=== PATIENT | female | born 1950 | race Caucasian/White ===

== ENCOUNTER 2018-08-02 13:24 | Inpatient (IN) ==
[2018-08-02] MEDS ORDERED: ASPIRIN PO ONE (13:36)
--- NOTE | 2018-08-02 13:49 | EKG Report ---
Test Performed on : 08/02/2018 1:40:59 PM Test Reason : CP Blood Pressure : / mmHG Vent. Rate : 085 BPM Atrial Rate : 085 BPM P-R Int : 138 ms QRS Dur : 082 ms QT Int : 354 ms P-R-T Axes : 064 055 009 degrees QTc Int : 421 ms Normal sinus rhythm. Nonspecific ST abnormality Abnormal ECG When compared with ECG of 22-JUL-2017 14:42, No significant change was found Unconfirmed Result
--- NOTE | 2018-08-02 14:06 | Diag Imaging Result Doc PS360 ---
EXAM: CHEST-2 VIEWS HISTORY: COUGH WITH CP TECHNIQUE: Chest two views COMPARISON: 07/19/2017 FINDINGS: There are infiltrates in the mid and lower left lung on the current exam. Interstitial markings are more prominent on the current study. No cardiomegaly. No pleural effusions. IMPRESSION: Mid and lower left lung pneumonia. Electronically signed by Dwayne Matthew 08/02/2018 2:04 PM
[2018-08-02 14:10] LABS: BASO# 0.01 X1000 (0.0-0.2); BASO% 0.1 % (0.0-0.8); EOS# 0.05 X1000 (0.0-0.7); EOS% 0.5 % (0.0-10.0); HEMOGLOBIN 10.9 g/dL (12.0-16.0); IMM GRAN# 0.01 X1000 (0.0-0.04); IMM GRAN% 0.1 % (0.0-0.5); LYMPH# 1.93 X1000 (1.2-3.4); LYMPH% 19.7 % (20.5-51.1); MCH 27.5 PG (27-31); MCHC 32.1 g/dL (33-37); MCV 85.6 FL (81-99); MONO# 0.68 X1000 (0.11-0.59); MONO% 6.9 % (1.7-9.3); MPV 9.2 FL (7.4-10.4); NEUT# 7.13 X1000 (1.4-6.5); NEUT% 72.7 % (42.2-75.2); PLT 213 X1000 (130-400); RBC 3.97 XMIL (4.2-5.4); RDW 15.3 % (11.5-14.5); WBC 9.81 X1000 (4.8-10.8)
[2018-08-02 14:22] LABS: INR 1.07; PROTIME 14.5 Seconds (11.0-16.0)
[2018-08-02 14:23] LABS: PTT 35.8 Seconds (22.3-41.8)
[2018-08-02 14:55] LABS: AGAP 18; ALBUMIN 3.8 g/dL (3.5-5.0); ALKALINE PHOSPHATASE 71 U/L (32-104); BUN 14 mg/dL (8-22); CALCIUM 8.4 mg/dL (8.8-10.2); CHLORIDE 99 mmol/L (98-107); CK PROFILE 311 U/L (24-173); COSMO 277; CREATININE 1.1 mg/dL (0.5-0.9); ESTIMATED GFR 50; GLUCOSE 122 mg/dL (70-104); GOT 11 U/L (10-30); GPT 7 U/L (10-36); POTASSIUM 3.6 mmol/L (3.5-5.1); SODIUM 138 mmol/L (136-145); TCO2 22 mmol/L (25-35); TOTAL BILIRUBIN < 0.15 mg/dL (0.20-1.00); TOTAL PROTEIN 6.2 g/dL (6.3-8.3)
[2018-08-02 15:18] LABS: CK INDEX 1.6 (0.0-2.5); CK-MB 4.88 ng/mL (0.0-5.0)
[2018-08-02] MEDS ORDERED: ROCEPHIN IM ONE (16:27)
[2018-08-02] MEDS ORDERED: TYLENOL PO ONE (16:27)
[2018-08-02] MEDS ORDERED: XYLOCAINE-MPF 1% INJ ONE ×2 (16:27→17:16)
[2018-08-02] MEDS ORDERED: ROCEPHIN IV ONE (17:16)
[2018-08-02] MEDS ORDERED: NS 1,000 ML IV ONE (17:17)
[2018-08-02] MEDS ORDERED: NS 50 ML ONE (17:24)
[2018-08-02 17:35] LABS: INFLUENZA A NEGATIVE (NEGATIVE); INFLUENZA B NEGATIVE (NEGATIVE)
[2018-08-02] MEDS ORDERED: NS 50 ML IV ONE (17:46)
[2018-08-02] MEDS ORDERED: ZOFRAN IV PRN (19:24)
[2018-08-02] MEDS ORDERED: DUONEB (A & A) INH PRN (19:27)
[2018-08-02] MEDS: DUONEB (A & A) INH SCH ×2 (19:45→22:59)
[2018-08-02] MEDS ORDERED: NS 1,000 ML ONE (19:51)
[2018-08-02] MEDS ORDERED: NICODERM PATCH ONE (19:51)
[2018-08-02] MEDS: SOLU-MEDROL IV SCH (20:00)
[2018-08-02] MEDS: NICODERM PATCH TD SCH (20:02)
[2018-08-02] MEDS: NS 1,000 ML IV SCH (20:03)
--- NOTE | 2018-08-02 20:05 | PROVIDER DOCUMENTATION ---
This chart was entered by Brittani Donahue Scribe, acting as scribe for Gabrielle Graves MD. HPI-General Adult - General Chief Complaint: Chest Pain Stated Complaint: FLU SX Time Seen by Provider: 08/02/18 16:03 Source: patient Allergies/Adverse Reactions: Patient Allergies Allergy/AdvReac Type Severity Reaction Status Date / Time cephalexin monohydrate * Allergy Mild HIVES Verified 04/21/13 13:59 [From Keflex] ARTEM Inhibitors AdvReac DRY COUGH Verified 07/21/17 08:31 Home Medications: Home Medication List Medication Instructions Recorded Confirmed Last Taken Type Amitriptyline [Elavil] 50 mg PO HS 04/21/13 07/19/17 04/20/13 20:00 History Citalopram [Celexa] 20 mg PO DAILY 04/21/13 07/19/17 04/20/13 20:00 History Clonazepam [Klonopin] 0.5 mg PO BID 04/21/13 07/20/17 04/20/13 20:00 History Dexlansoprazole [Dexilant] 60 mg PO DAILY 04/21/13 07/19/17 04/21/13 08:00 History Gabapentin 600 mg PO BID 04/21/13 07/20/17 04/21/13 08:00 History Diltiazem C.d. [Cardizem Cd] 120 mg PO DAILY #30 cap 07/23/17 Unknown Rx Doxycycline 100 mg PO BID #12 tab 07/23/17 Unknown Rx Gabapentin [Neurontin] 300 mg PO Q6H capsule 07/23/17 Unknown Rx Hydrochlorothiazide 25 mg PO DAILY #30 tab 07/23/17 Unknown Rx Levofloxacin [Levaquin] 500 mg PO DAILY #6 tab 07/23/17 Unknown Rx - History of Present Illness -Gen Adult Nature of Presenting Problems: Pt is 68/F presenting to ED w/ cough, left lateral chest pain w/ cough, and nasal congestion for the last several days. Pt denies SOB. HX of COPD. Pt is an everyday current smoker last cig 10 minutes ago per patient. Location of Pain/Injury: reports: chest (w/ cough only) Pain Radiation: reports: no radiation Quality of Pain: reports: aching Severity: reports: mild Onset/Duration: reports: 2 days ago, 3 days ago Timing: reports: still present Context/Activities at Onset: reports: none Modifying Factors: improves with: nothing Associated Symptoms: reports: chest pain, cough. denies: diaphoresis, fever/ chills, shortness of breath, vomiting Similar Symptoms Previously?: No Recently seen or treated by another doctor?: No Review of Systems - Adult - REVIEW OF SYSTEMS - ADULT Constitutional: denies: chills, fever Eyes: reports: no symptoms reported Ears, Nose, Mouth & Throat: reports: no symptoms reported Cardiovascular: reports: no symptoms reported. denies: chest pain (w/ coughing only) Respiratory: reports: cough. denies: shortness of breath, wheezing Gastrointestinal: reports: no symptoms reported. denies: abdominal pain, nausea , vomiting Genitourinary: reports: no symptoms reported Musculoskeletal: reports: no symptoms reported Integumentary: reports: no symptoms reported Neurological: reports: no symptoms reported. denies: dizziness/vertigo, headache/migraines Endocrine: reports: no symptoms reported Hematologic/Lymphatic: reports: no symptoms reported Allergic/Immunologic: reports: no symptoms reported All Other Systems: Reviewed and Negative Past History - Adult - PAST MEDICAL HISTORY-ADULT Review of Records: reports: Old Records Reviewed, Nursing Assessment Review, Medications Reviewed, Social history reviewed & non-contributory. Respiratory: reports: COPD - SOCIAL HISTORY Smoking: cigarettes, greater than 1 pack/day Provider spent 3-5 mins advising pt. on dangers of tobacco.: Discussed manners to quit use, and f/u contacts for add'l counseling. Substance Use: none/never Alcohol Use Frequency: never Living Situation: family Physical Exam-General - PHYSICAL EXAM-ADULT Initial Vital Signs Reviewed: Yes - CONSTITUTIONAL General Appearance: alert, no apparent distress - EYES Eyes: PERRL/EOMI - HEAD, EARS, NOSE, MOUTH & THROAT HENMT: normocephalic/atraumatic, moist mucous membranes, normal ENT inspection, TMs normal, pharynx normal - NECK Neck: non-tender, full range of motion, supple, normal inspection - RESPIRATORY Respiratory: chest non-tender, normal breath sounds, crackles (Crackles L lung) . negative: wheezing - CARDIOVASCULAR Cardiovascular: normal peripheral pulses, regular rate, rhythm, no edema - GASTROINTESTINAL (ABDOMEN) Abdominal Exam: normal bowel sounds, non tender, soft - SKIN Integumentary: normal color, warm/dry - NEUROLOGIC Neurologic: grossly normal Progress - PLAN OF CARE/RESULTS Progress/Plan/Lab Results: Vital Signs - 8 hr 08/02/18 13:32 Temperature 98.0 F Pulse Rate 88 Respiratory Rate 20 Blood Pressure 116/65 O2 Sat by Pulse Oximetry 93 L Laboratory Results - last 24 hr 08/02/18 08/02/18 08/02/18 13:48 13:48 13:48 WBC 9.81 RBC 3.97 L Hgb 10.9 L Hct 34.0 L MCV 85.6 MCH 27.5 MCHC 32.1 L RDW Std Deviation 15.3 H Plt Count 213 MPV 9.2 Immature Gran % (Auto) 0.1 Neut % (Auto) 72.7 Lymph % (Auto) 19.7 L Sutter % (Auto) 6.9 Eos % (Auto) 0.5 Baso % (Auto) 0.1 Immature Gran # (Auto) 0.01 Neut # (Auto) 7.13 H Lymph # (Auto) 1.93 Sutter # (Auto) 0.68 H Eos # (Auto) 0.05 Baso # (Auto) 0.01 PT INR PTT (Actin FS) Sodium 138 Potassium 3.6 Chloride 99 Carbon Dioxide 22 L Anion Gap 18 BUN 14 Creatinine 1.1 H Estimated GFR/1.73 m2 50 BUN/Creatinine Ratio 13 Glucose 122 H Calculated Osmolality 277 Calcium 8.4 L Total Bilirubin < 0.15 L AST 11 ALT 7 L Alkaline Phosphatase 71 Creatine Kinase 311 H Creatine Kinase Index 1.6 CK-MB (CK-2) 4.88 Troponin T Zsg-V-Etdomyfaixk Pept 270 Total Protein 6.2 L Albumin 3.8 Globulin 2.0 Albumin/Globulin Ratio 2.0 08/02/18 08/02/18 13:48 13:48 WBC RBC Hgb Hct MCV MCH MCHC RDW Std Deviation Plt Count MPV Immature Gran % (Auto) Neut % (Auto) Lymph % (Auto) Sutter % (Auto) Eos % (Auto) Baso % (Auto) Immature Gran # (Auto) Neut # (Auto) Lymph # (Auto) Sutter # (Auto) Eos # (Auto) Baso # (Auto) PT 14.5 INR 1.07 PTT (Actin FS) 35.8 Sodium Potassium Chloride Carbon Dioxide Anion Gap BUN Creatinine Estimated GFR/1.73 m2 BUN/Creatinine Ratio Glucose Calculated Osmolality Calcium Total Bilirubin AST ALT Alkaline Phosphatase Creatine Kinase Creatine Kinase Index CK-MB (CK-2) Troponin T < 0.010 Hye-R-Iqohwzbucxe Pept Total Protein Albumin Globulin Albumin/Globulin Ratio Orders Category Date Time Status Cardiac Monitoring DIRECTED Care 08/02/18 13:36 Active Oxygen Therapy- ED Nursing DIRECTED Care 08/02/18 13:36 Active Saline Loc NOW Care 08/02/18 13:36 Active CHEST-2 VIEWS [RAD] Stat Exams 08/02/18 13:36 Completed CBC WITH ELECTRONIC DIFF [HEME] Stat Lab 08/02/18 13:48 Completed CK PROFILE [SP CHEM] Stat Lab 08/02/18 13:48 Completed COMPREHENSIVE METABOLIC PANEL [CHEM] Stat Lab 08/02/18 13:[address] Stat Lab 08/02/18 16:26 Uncollected PRO B-NATRIURETIC PEPTIDE Stat Lab 08/02/18 13:48 Completed PROTIME WITH INR [COAG] Stat Lab 08/02/18 13:48 Completed PTT [COAG] Stat Lab 08/02/18 13:48 Completed TROPONIN T Stat Lab 08/02/18 13:48 Completed Acetaminophen [Tylenol] Med 08/02/18 16:27 Discontinued 650 mg PO NOW ONE Aspirin Med 08/02/18 13:36 Discontinued 325 mg PO NOW ONE CefTRIAXONE [Rocephin] Med 08/02/18 16:27 Discontinued 1 gm IM NOW ONE Lidocaine 1% Pf [Xylocaine-Mpf 1%] Med 08/02/18 16:27 Discontinued 5 ml INJ NOW ONE CP/SOB/Palp >45 yrs of Age Stat Oth 08/02/18 13:36 Ordered EKG [EKG] Stat Ther 08/02/18 13:36 Draft Result Diagrams: 08/02/18 13:48 08/02/18 13:48 - EKG 1 Time of EKG reading by physician:: 13:52 EKG Read and Signed by:: Drake Abdullahi EKG Interpretation (*Must complete 3 of following elements*): Abnormal (normal sinus rhythm, nonspecific ST abnormality, Abnormal ECG) Rate: 85 Rhythm: normal sinus QRS: normal LA Interval: normal - CONSULTS/PCP/HOSPITALIST Notification #1 *Consult/PCP/Hospitalist*: Dr. Crandall Time Discussed: 18:41 Consult Disposition: Admit (Hx, PE, DX discused with Dr. Crandall) Departure - Departure Date of Disposition Decision: 08/02/18 Time of Disposition Decision: 19:01 DIAGNOSIS: Creatinine elevation Pneumonia Qualifiers: Pneumonia type: due to unspecified organism Laterality: left Lung location: lower lobe of lung Qualified Code(s): J18.1 - Lobar pneumonia, unspecified organism Disposition: ADMITTED INPATIENT 09 Certified Medical Emergency: Emergent Condition: Stable - Critical Care Note This patient required my direct & personal management of CC.: No Attestation - Physician/ LISA Attestation Patient care was provided by Advanced Practice Provider:: No The physician spent face to face time with patient:: Yes Advanced Practice Provider documentation review:: Supervising physician onsite and consulted in the evaluation and care of this patient. The physician did have a face to face encounter with the patient. This chart was documented by the indicated scribe, (Brittani Donahue, Scribe) and accurately reflects the services I performed and decisions made by me, Gabrielle Graves MD, as attested by the provider's signature.
--- NOTE | 2018-08-02 20:14 | HISTORY AND PHYSICAL ---
CHIEF COMPLAINT: Shortness of breath, cough, fever, chills. HISTORY OF PRESENT ILLNESS: Ms. Villalpando is a 68-year-old female with a history of COPD, continued tobacco use, hypertension and chronic back pain. She presents to the emergency room complaining of about 2 weeks of increasing shortness of breath, PND, orthopnea with a nonproductive cough despite her home medications. She states she called her primary care physician this morning and once they discussed symptoms she was told to come to the emergency room. She was found to have left mid and lower lobe pneumonia. Blood cultures were obtained. She was given Rocephin in the emergency room and she has been admitted for further evaluation and treatment. PAST MEDICAL HISTORY: COPD, gastroesophageal reflux disease, hypertension, interstitial cystitis, irritable bowel syndrome and chronic back pain. PAST SURGICAL HISTORY: Breast biopsy and hysterectomy. SOCIAL HISTORY: She smokes 2 to 3 packs of cigarettes a day. She denies alcohol or illicit drug use. ALLERGIES: Keflex, which causes hives. HOME MEDICATIONS: A list will be obtained by the nursing staff. Once verified, we will review and restart as is appropriate. REVIEW OF SYSTEMS: Discussed with patient with pertinent positives stated in the HPI. She denied any syncope, dizziness, any palpitations, any fevers, chills, any nausea, vomiting, diarrhea, constipation, black or bloody vomitus or stools, hematuria, dysuria, frequency, urgency. PHYSICAL EXAMINATION: GENERAL: This is a 68-year-old female who is lying on the stretcher in the emergency room in no distress. VITAL SIGNS: Blood pressure is 133/59 with a heart rate of 70, respirations are 20, temperature is 98 oral with room air sats 93-95%. EYES: Pupils are equal, round, react to light. EOMs are intact. Sclerae are anicteric. HEENT: Head is normocephalic, atraumatic. Mucous membranes are moist. She does have poor dentition. NECK: Supple, with trachea midline. CARDIOVASCULAR: Regular rate and rhythm. S1, S2 appreciated. She has no lower extremity edema, with peripheral pulses palpable x 4 extremities. PULMONARY: Breath sounds with wheezing scattered throughout with prolonged expiration. No increased work of breathing noted. Chest does rise and fall symmetrically with respiration. GASTROINTESTINAL: Soft, nontender, nondistended. Bowel sounds in all 4 quadrants. GENITOURINARY: She has no CVAT nor suprapubic tenderness. NEUROLOGIC: She is alert oriented x 3. SKIN: Warm and dry. LABS: WBC is 9.8 with hemoglobin 10.9, hematocrit 34 and platelets of 213,000. Sodium is 138, potassium 3.6, BUN 14, creatinine 1.1, with a glucose of 122. Troponin is negative. Influenza A and B are negative. Chest x-ray revealed left middle and lower lobe pneumonia. Blood cultures are pending. ASSESSMENT AND PLAN: 1. Left-sided pneumonia. 2. COPD, acute on chronic exacerbation. 3. Acute kidney injury secondary to decreased p.o. intake. 4. Hyperglycemia. 5. Gastroesophageal reflux disease. 6. Hypertension. 7. Chronic back pain. 8. Tobacco use and abuse. 9. DVT prophylaxis. 10. GI prophylaxis. PLAN: The patient will be admitted to the Medical-Surgical floor and placed on telemetry. We will give supplemental oxygen as needed, DuoNeb q.4 hours and q.2 hours p.r.n., with steroids to taper. Will identify her home medications and continue as is appropriate. Rocephin was given in the emergency room. We will continue this, add azithromycin daily and any further antibiotics will be culture driven. We will repeat a CBC, CMP, magnesium in the morning. We will attempt to get a sputum specimen, incentive spirometer every 4 hours. We will identify her home medications and continue as appropriate. For DVT prophylaxis we will give Lovenox daily for 3 days. For GI prophylaxis Prilosec. We will start a nicotine patch. Further treatments pending hospital course. Dictated by DEMAR Torres for Ruben Crandall MD This chart was documented by, DEMAR Torres and accurately reflects the services performed, treatment plan and medical decisions as attested by the providers signature Ruben Crandall MD. cc: DEMAR Torres MD
[2018-08-02 23:42] LABS: BILIRUBIN URINE NEGATIVE (NEGATIVE); BLOOD URINE NEGATIVE (NEGATIVE); CLARITY CLEAR (CLEAR); COLOR YELLOW; GLUCOSE URINE NEGATIVE (NEGATIVE); KETONE URINE NEGATIVE (NEGATIVE); LEUKOCYTES URINE NEGATIVE (NEGATIVE); NITRITE URINE NEGATIVE (NEGATIVE); PROTEIN URINE NEGATIVE (NEGATIVE); UROBILINOGEN URINE NORMAL
[2018-08-02 23:45] LABS: URINE BACTERIA 1+ /HFP; URINE EPITHELIAL CELLS <10 /HPF (<10); URINE SOURCE CLEAN CATCH; URINE WBC NS /HPF (<10)
--- NOTE | 2018-08-02 23:54 | HISTORY AND PHYSICAL ---
ADDENDUM: HISTORY OF PRESENT ILLNESS: Patient was admitted to the hospital initially with flu-like symptoms, continue with cough, cold congestion, diagnosed with a COPD exacerbation. We will admit to the hospital, place on antibiotics. We will attempt to use half-strength albuterol as full strength seemed to make more nervous and will follow. Please see full note by nurse practitioner. cc: Ruben Crandall MD
[2018-08-03] MEDS: KLONOPIN PO SCH ×3 (00:09→23:26)
[2018-08-03] MEDS: ZITHROMAX PO SCH ×2 (00:09→23:27)
[2018-08-03] MEDS: DUONEB (A & A) INH SCH ×5 (03:04→19:16)
[2018-08-03] MEDS: SOLU-MEDROL IV SCH ×3 (03:52→23:28)
[2018-08-03] MEDS: TYLENOL PO PRN ×2 (06:24→23:29)
[2018-08-03] MEDS: PRILOSEC PO SCH (06:24)
[2018-08-03 06:33] LABS: HEMATOCRIT 31.5 % (37.0-47.0); HEMOGLOBIN 9.9 g/dL (12.0-16.0); MCH 26.9 PG (27-31); MCHC 31.4 g/dL (33-37); MCV 85.6 FL (81-99); RBC 3.68 XMIL (4.2-5.4); RDW 15.1 % (11.5-14.5); WBC 6.11 X1000 (4.8-10.8)
[2018-08-03 07:01] LABS: AGAP 12; ALBUMIN 3.2 g/dL (3.5-5.0); ALKALINE PHOSPHATASE 75 U/L (32-104); BUN 13 mg/dL (8-22); CALCIUM 8.4 mg/dL (8.8-10.2); CHLORIDE 103 mmol/L (98-107); COSMO 289; CREATININE 0.9 mg/dL (0.5-0.9); ESTIMATED GFR > 60; GLUCOSE 262 mg/dL (70-104); GOT 9 U/L (10-30); GPT 7 U/L (10-36); MAGNESIUM 2.1 mg/dL (1.5-2.7); POTASSIUM 3.7 mmol/L (3.5-5.1); SODIUM 140 mmol/L (136-145); TCO2 24 mmol/L (25-35); TOTAL BILIRUBIN < 0.15 mg/dL (0.20-1.00); TOTAL PROTEIN 6.3 g/dL (6.3-8.3)
[2018-08-03] MEDS: LOVENOX SUBQ SCH (08:42)
[2018-08-03] MEDS: NICODERM PATCH TD SCH (08:42)
[2018-08-03] MEDS: NS 1,000 ML IV SCH ×2 (08:44→23:26)
[2018-08-03] MEDS: ROCEPHIN 1 GM in NS 50 ML IV SCH (17:24)
[2018-08-04] MEDS: DUONEB (A & A) INH SCH ×6 (00:01→20:00)
--- NOTE | 2018-08-04 00:08 | PROGRESS NOTE ---
DATE: 08/03/2018 SUBJECTIVE: Patient states she is feeling a little bit better. Still having cough and congestion, still having shortness of breath, still unable to get out of bed without assistance due to generalized weakness and her breathing. PHYSICAL EXAMINATION: Vital signs: Temperature current 97.6, pulse 66, respiratory 18, BP 108/51. General: Patient is awake, alert. She is in mild respiratory distress, pleasant to talk with. She is alert, oriented x3. HEENT: Normocephalic. Neck: Supple. Cardiovascular: Regular rate. No murmurs. Chest: Decreased but equal breath sounds. Positive wheezing. No crackles. Mildly labored. Abdomen: Soft, nondistended, nontender. Extremities: Moves all extremities. ASSESSMENT: 1. Chronic obstructive pulmonary disease with exacerbation. 2. Chronic tobacco abuse at 2 to 3 packs a day. 3. Left-sided pneumonia. 4. Acute kidney injury, resolved. 5. Hyperglycemia. 6. Hypertension. 7. Chronic back pain. 8. Chronic tobacco abuse. PLAN: Continue azithromycin, Rocephin. Continue Solu-Medrol. We will not decrease today but, hopefully, can wean tomorrow. Again, discussed with patient the perils of smoking as well as reasons and the importance of stopping. cc: Ruben Crandall MD
[2018-08-04] MEDS ORDERED: NS 1,000 ML IV SCH (06:27)
[2018-08-04] MEDS: SOLU-MEDROL IV SCH ×4 (06:55→23:38)
[2018-08-04 07:32] LABS: AGAP 13; BUN 15 mg/dL (8-22); CALCIUM 8.3 mg/dL (8.8-10.2); CHLORIDE 107 mmol/L (98-107); COSMO 286; CREATININE 0.8 mg/dL (0.5-0.9); ESTIMATED GFR > 60; GLUCOSE 135 mg/dL (70-104); POTASSIUM 3.7 mmol/L (3.5-5.1); SODIUM 142 mmol/L (136-145); TCO2 22 mmol/L (25-35)
[2018-08-04 07:35] LABS: HEMATOCRIT 30.2 % (37.0-47.0); HEMOGLOBIN 9.6 g/dL (12.0-16.0); MCH 27.2 PG (27-31); MCHC 31.8 g/dL (33-37); MCV 85.6 FL (81-99); MPV 9.8 FL (7.4-10.4); RBC 3.53 XMIL (4.2-5.4); WBC 6.95 X1000 (4.8-10.8)
[2018-08-04] MEDS: PRILOSEC PO SCH (07:54)
[2018-08-04] MEDS ORDERED: KLONOPIN PO PRN (08:46)
--- NOTE | 2018-08-04 09:44 | Diag Imaging Result Doc PS360 ---
EXAM: WRIST COMPLETE LEFT - 08/04/2018 HISTORY: fall TECHNIQUE: Left wrist three views COMPARISON: None. FINDINGS: The bones are possibly osteopenic. There are mild degenerative changes. There is no fracture or dislocation identified. IMPRESSION: No evidence of fracture or dislocation. Electronically signed by Rohan Mora 08/04/2018 9:41 AM
[2018-08-04] MEDS: NICODERM PATCH TD SCH (10:06)
[2018-08-04] MEDS: LOVENOX SUBQ SCH (10:07)
[2018-08-04] MEDS: DEXILANT PO SCH (10:07)
[2018-08-04] MEDS: KLONOPIN PO SCH ×2 (10:08→23:37)
[2018-08-04] MEDS: NEURONTIN PO SCH ×3 (10:11→16:38)
[2018-08-04] MEDS: CELEXA PO SCH (10:12)
[2018-08-04] MEDS: CARDIZEM CD PO SCH (10:12)
[2018-08-04] MEDS: ROCEPHIN 1 GM in NS 50 ML IV SCH (17:41)
[2018-08-04] MEDS ORDERED: ELAVIL PO SCH (21:00)
--- NOTE | 2018-08-04 22:58 | PROGRESS NOTE ---
DATE: 08/04/2018 SUBJECTIVE: The patient notes overall she is starting to feel a bit better with less cough and congestion and less shortness of breath. Denies any chest pain or palpitations. Denies any GI or issues currently. OBJECTIVE: Vital Signs: Temperature is 97.9, pulse 60, respiratory 20, BP 143/72. General: The patient is improving. HEENT: Normocephalic. Neck: Supple. Cardiovascular: Regular rate. Chest: Much improved, much more clear. Abdomen: Soft, nondistended, nontender. Extremities: Moves all extremities. Neurologic: No changes. ASSESSMENT: 1. Left-sided pneumonia. 2. Chronic obstructive pulmonary disease with [id number] exacerbation. 3. Chronic hypoxemia. 4. Acute kidney injury, resolved. 5. Left wrist pain, improved. 6. Reflux. 7. Hypertension. 8. Chronic back pain. 9. Chronic tobacco abuse. PLAN: Discussed with the patient again the importance of stopping smoking. We will continue Solu- Medrol, azithromycin and Rocephin. We will check an x-ray of her right wrist and will follow. Hopefully home over the next few days. cc: Ruben Crandall MD
[2018-08-04] MEDS: ZITHROMAX PO SCH (23:37)
[2018-08-05] MEDS: DUONEB (A & A) INH SCH ×2 (04:04→07:31)
[2018-08-05] MEDS: SOLU-MEDROL IV SCH (06:25)
[2018-08-05] MEDS: PRILOSEC PO SCH (06:26)
[2018-08-05] MEDS ORDERED: SOLU-MEDROL IV SCH (06:30)
[2018-08-05 07:28] LABS: HEMATOCRIT 31.4 % (37.0-47.0); HEMOGLOBIN 9.9 g/dL (12.0-16.0); MCH 27.3 PG (27-31); MCHC 31.5 g/dL (33-37); MCV 86.5 FL (81-99); MPV 9.2 FL (7.4-10.4); RBC 3.63 XMIL (4.2-5.4); RDW 15.4 % (11.5-14.5); WBC 7.54 X1000 (4.8-10.8)
[2018-08-05 08:07] LABS: AGAP 13; BUN 19 mg/dL (8-22); CALCIUM 8.2 mg/dL (8.8-10.2); CHLORIDE 108 mmol/L (98-107); COSMO 290; CREATININE 0.8 mg/dL (0.5-0.9); ESTIMATED GFR > 60; GLUCOSE 116 mg/dL (70-104); POTASSIUM 4.5 mmol/L (3.5-5.1); SODIUM 144 mmol/L (136-145); TCO2 23 mmol/L (25-35)
[2018-08-05 08:22] VITALS: BP 154/77
[2018-08-05] MEDS: LOVENOX SUBQ SCH (10:06)
[2018-08-05] MEDS: CELEXA PO SCH (10:07)
[2018-08-05] MEDS: NICODERM PATCH TD SCH (10:07)
[2018-08-05] MEDS: CARDIZEM CD PO SCH (10:07)
[2018-08-05] MEDS: DEXILANT PO SCH (10:07)
[2018-08-05] MEDS: NEURONTIN PO SCH (10:07)
--- NOTE | 2018-08-06 07:27 | DISCHARGE SUMMARY ---
ADMISSION DATE: 08/02/2018 DISCHARGE DATE: 08/05/2018 DIAGNOSES: 1. Left-sided pneumonia. 2. Chronic obstructive pulmonary disease acute on chronic exacerbation. 3. Acute kidney injury, resolved. 4. Chronic hypoxemia. 5. Left wrist pain, improved. 6. Gastroesophageal reflux disease. 7. Hypertension. 8. Tobacco use. DIAGNOSTICS: 1. 08/02/2018: Chest x-ray revealed mid and lower left lung pneumonia. 2. Left wrist x-ray revealed no evidence of fracture or dislocation. MICROBIOLOGY: 1. Urine culture revealed no growth. 2. Sputum culture revealed normal yusef. 3. Blood cultures revealed no growth after 48 hours. HOSPITAL COURSE: Ms. Villalpando presented to the emergency room complaining of shortness of breath, cough, fever, and chills. She was found to have left-sided pneumonia for which she was initially treated with azithromycin and Rocephin. She has been transitioned over to Omnicef and Zithromax for discharge. She has had less cough and congestion, and less shortness of breath. Today she feels much better, and thankfully is ready for discharge. She was given IV steroids to taper while in the hospital, and she has been giving a Medrol Dosepak for discharge. She was noted to have a creatinine of 1.1 on admission. After hydration, her creatinine is down to 0.8. DISCHARGE MEDICATIONS: 1. Proventil 4 mg p.o. b.i.d. 2. Elavil 50 mg p.o. at bedtime. 3. Celexa 20 mg p.o. daily. 4. Klonopin 0.5 mg p.o. b.i.d. 5. Dexilant 60 mg p.o. daily. 6. Dicyclomine 20 mg p.o. daily. 7. Cardia XT 120 mg p.o. daily. 8. Lasix 40 mg p.o. daily. 9. Gabapentin 300 mg p.o. t.i.d. 10. Hydrochlorothiazide 25 mg p.o. daily. 11. Medrol Dosepak take as directed. 12. Omnicef 300 mg p.o. b.i.d. for 5 days. 13. Zithromax 250 mg p.o. at bedtime for 5 days. FOLLOW-UP: 1. She is to follow up with her primary care provider DEMAR Patiño in 1 week. She is to call and schedule this appointment. 2. She has been instructed to call to be seen sooner or return to the ER for any chest pain, palpitations, syncope, dizziness, any recurring shortness of breath, temperature greater than 101.5, any nausea, vomiting, diarrhea, constipation, black or bloody vomitus or stools, or for any questions or concerns that she may have. 3. She is being discharged home in stable condition with family members. TIME SPENT: This is a greater than 30 minute discharge. Dictated by DEMAR Torres for Ruben Crandall MD This chart was documented by, DEMAR Torres and accurately reflects the services performed, treatment plan and medical decisions as attested by the providers signature Ruben Crandall MD. cc: DEMAR Torres MD
--- NOTE | 2018-08-06 19:56 | DISCHARGE SUMMARY ---
ADMISSION DATE: 08/02/2018 DISCHARGE DATE: 08/05/2018 Patient seen and examined by myself. Full note dictated and discussed with nurse practitioner. On discharge, patient is awake, alert, currently in no distress. Overall, notes that she is feeling better. She is able to ambulate without any difficulty. We will discharge her home. Continue antibiotics, breathing treatments, oxygen at home. Continue steroid tapering Dosepak. She will follow up outpatient with treatment facility of choice. Please see full note by nurse practitioner. cc: Ruben Crandall MD
== END 2018-08-05 11:25 | disposition home or self-care (01) | DRG 190 ==
LOC: P.ED 13:24 → P.MEDSURG 19:54
PROVIDERS: ATTEND Family Medicine
CPT/HCPCS: 36415; 71020; 71046; 73110; 80048; 80053; 81001; 82550; 82553; 83605; 83735; 83880; 84484; 85025; 85027; 85610; 85730; 87040; 87070; 87088; 87205; 87275; 87276; 87804; 93005; 94640; 94761; 94799; 96361; 96374; 96375; 99285; A9270; J0696; J1650; J2405; J2920; J2930; J7030